=== PATIENT | male | born 1945 | race Native Hawaiian/Other Pacific Islander ===

== ENCOUNTER 2017-01-03 07:52 | Outpatient (CLI) | payer OTHER, MEDICARE | END 2017-01-03 19:12 | disposition home or self-care (01) | LOC: LABW 07:52 | PROVIDERS: Nurse Practitioner Adult Health | DX: E78.2 Mixed hyperlipidemia (principal); Z79.899 Other long term (current) drug therapy; Z51.81 Encounter for therapeutic drug level monitoring | CPT/HCPCS: 36415; 80061; 80076 ==

== ENCOUNTER 2017-03-13 13:23 | Outpatient (CLI) | payer OTHER, MEDICARE | END 2017-03-13 20:00 | disposition home or self-care (01) | LOC: RAD 13:23 | DX: M25.511 Pain in right shoulder (principal) ==

== ENCOUNTER 2017-07-11 07:57 | Outpatient (CLI) | payer OTHER, MEDICARE | END 2017-07-11 09:00 | disposition home or self-care (01) | LOC: LABW 07:57 | PROVIDERS: Nurse Practitioner Adult Health | DX: N40.0 Benign prostatic hyperplasia without lower urinary tract symptoms (principal); E78.2 Mixed hyperlipidemia; Z79.899 Other long term (current) drug therapy; Z51.81 Encounter for therapeutic drug level monitoring | CPT/HCPCS: 36415; 80061; 80076; 84153 ==

== ENCOUNTER 2017-10-17 08:11 | Outpatient (CLI) | payer OTHER, MEDICARE | END 2017-10-17 19:03 | disposition home or self-care (01) | LOC: LABW 08:11 | PROVIDERS: Nurse Practitioner Adult Health | DX: E78.2 Mixed hyperlipidemia (principal); Z79.899 Other long term (current) drug therapy; Z51.81 Encounter for therapeutic drug level monitoring | CPT/HCPCS: 36415; 80061; 80076 ==

== ENCOUNTER 2017-12-28 09:38 | Outpatient (CLI) | payer OTHER, MEDICARE | END 2017-12-28 22:55 | disposition home or self-care (01) | LOC: RAD 09:38 | DX: M25.512 Pain in left shoulder (principal) ==

== ENCOUNTER 2018-06-13 07:46 | Outpatient (CLI) | payer OTHER, MEDICARE | END 2018-06-13 19:23 | disposition home or self-care (01) | LOC: LABW 07:46 | PROVIDERS: Nurse Practitioner Adult Health | DX: E78.2 Mixed hyperlipidemia (principal); Z79.899 Other long term (current) drug therapy | CPT/HCPCS: 36415; 80061; 80076 ==

== ENCOUNTER 2018-09-10 10:43 | Outpatient (CLI) | payer OTHER, MEDICARE | END 2018-09-10 20:33 | disposition home or self-care (01) | LOC: RAD 10:43 | DX: M79.672 Pain in left foot (principal) ==

== ENCOUNTER 2018-12-24 07:44 | Outpatient (CLI) | payer OTHER, MEDICARE | END 2018-12-24 22:18 | disposition home or self-care (01) | LOC: LABW 07:44 | PROVIDERS: Nurse Practitioner Adult Health | DX: E78.2 Mixed hyperlipidemia (principal); Z79.899 Other long term (current) drug therapy | CPT/HCPCS: 80061; 80076 ==

== ENCOUNTER 2019-06-12 08:13 | Outpatient (CLI) | payer OTHER, MEDICARE | END 2019-06-12 21:35 | disposition home or self-care (01) | LOC: LABW 08:13 | PROVIDERS: Nurse Practitioner Adult Health | DX: E78.2 Mixed hyperlipidemia (principal); Z79.899 Other long term (current) drug therapy | CPT/HCPCS: 36415; 80061; 80076 ==

== ENCOUNTER 2019-06-17 12:53 | Outpatient (CLI) | payer OTHER, MEDICARE | END 2019-06-17 22:40 | disposition home or self-care (01) | LOC: RAD 12:53 | DX: M54.5 Low back pain (principal) ==

== ENCOUNTER 2020-06-10 07:30 | Outpatient (CLI) | payer OTHER, MEDICARE | END 2020-06-10 23:54 | disposition home or self-care (01) | LOC: LABW 07:30 | PROVIDERS: Nurse Practitioner Adult Health | DX: E78.2 Mixed hyperlipidemia (principal); Z79.899 Other long term (current) drug therapy | CPT/HCPCS: 36415; 80061; 80076 ==

== ENCOUNTER 2020-07-06 12:44 | Outpatient (CLI) | payer OTHER, MEDICARE | END 2020-07-06 23:35 | disposition home or self-care (01) | LOC: RAD 12:44 | DX: M25.511 Pain in right shoulder (principal) ==

== ENCOUNTER 2020-12-28 07:38 | Outpatient (CLI) | payer OTHER, MEDICARE ==
[2020-12-28 08:17] LABS: POTASSIUM 4.6 mmol/L (3.6-5.2)
== END 2020-12-28 19:25 | disposition home or self-care (01) ==
LOC: LABW 07:38
PROVIDERS: ATTEND Nurse Practitioner Adult Health
DX: E78.2 Mixed hyperlipidemia (principal); Z79.899 Other long term (current) drug therapy; R35.8 Other polyuria
CPT/HCPCS: 36415; 80048; 80061; 80076

== ENCOUNTER 2021-08-30 07:33 | Outpatient (CLI) | payer OTHER, MEDICARE | END 2021-08-30 19:33 | disposition home or self-care (01) | LOC: RAD 07:33 | PROVIDERS: ATTEND Nurse Practitioner Adult Health | DX: E78.49 Other hyperlipidemia (principal); Z79.899 Other long term (current) drug therapy; M54.6 Pain in thoracic spine | CPT/HCPCS: 36415; 80061; 80076 ==

== ENCOUNTER 2021-10-18 15:49 | Outpatient (CLI) | payer OTHER, MEDICARE | END 2021-10-18 19:57 | disposition home or self-care (01) | LOC: CT 15:49 | PROVIDERS: ATTEND Internal Medicine | DX: M54.81 Occipital neuralgia (principal); Z82.49 Family history of ischemic heart disease and other diseases of the circulatory system; R51.9 Headache, unspecified ==

== ENCOUNTER 2021-12-29 14:42 | Outpatient (CLI) | payer OTHER | END 2021-12-29 18:55 | disposition home or self-care (01) | LOC: US 14:42 | PROVIDERS: ATTEND Internal Medicine | DX: M79.661 Pain in right lower leg (principal) ==

== ENCOUNTER 2022-05-04 07:50 | Outpatient (CLI) | payer OTHER, MEDICARE | END 2022-05-04 18:50 | disposition home or self-care (01) | LOC: LABW 07:50 | PROVIDERS: ATTEND Nurse Practitioner Adult Health | DX: E78.49 Other hyperlipidemia (principal); I10 Essential (primary) hypertension; Z79.899 Other long term (current) drug therapy | CPT/HCPCS: 36415; 80061; 80076; 84436; 84443; 84479 ==

== ENCOUNTER 2022-06-07 13:08 | Outpatient (CLI) | payer OTHER, MEDICARE | END 2022-06-07 19:08 | disposition home or self-care (01) | LOC: US 13:08 | PROVIDERS: ATTEND Nurse Practitioner Family | DX: E03.8 Other specified hypothyroidism (principal) ==

== ENCOUNTER 2022-11-04 15:28 | Outpatient (CLI) | payer OTHER, MEDICARE | END 2022-11-04 19:34 | disposition home or self-care (01) | LOC: LABW 15:28 | PROVIDERS: ATTEND Nurse Practitioner Family | DX: R19.7 Diarrhea, unspecified (principal); R10.9 Unspecified abdominal pain | CPT/HCPCS: 82272; 83630; 87015; 87045; 87324; 87328; 87329; 87449; 87899 ==

== ENCOUNTER 2022-12-16 10:53 | Outpatient (CLI) | payer OTHER, MEDICARE | END 2022-12-16 19:32 | disposition home or self-care (01) | LOC: US 10:53 | PROVIDERS: ATTEND Internal Medicine | DX: R42 Dizziness and giddiness (principal); E78.49 Other hyperlipidemia; R05.9 Cough, unspecified; R09.81 Nasal congestion ==

== ENCOUNTER 2023-04-21 08:07 | Outpatient (CLI) | payer OTHER, MEDICARE | END 2023-04-21 18:56 | disposition home or self-care (01) | LOC: US 08:07 | PROVIDERS: ATTEND Internal Medicine | DX: R07.89 Other chest pain (principal); Z13.6 Encounter for screening for cardiovascular disorders; Z84.89 Family history of other specified conditions ==

== ENCOUNTER 2023-11-08 12:39 | Outpatient (CLI) | payer OTHER, MEDICARE | END 2023-11-08 19:28 | disposition home or self-care (01) | LOC: RAD 12:39 | PROVIDERS: ATTEND Physician Assistant | DX: M54.59 Other low back pain (principal); M25.552 Pain in left hip ==